=== PATIENT | male | born 1965 | race Caucasian/White ===

== ENCOUNTER 2018-08-01 23:11 | Observation (INO) | payer OTHER ==
[~2018-08-01 23:11] MED LIST: Iopamidol 370 76% 100 ML VIAL ONE
--- NOTE | 2018-08-01 23:49 | RAD ---
AP VIEW CHEST: 08/01/18 HISTORY: Chest pain. AP view chest is obtained on 08/01/18. Comparison made to previous exam from 10/23/13. AP view chest demonstrates the lungs to be well aerated. No evidence of active intrathoracic disease seen. No evidence of effusions, pneumonia or pneumothorax seen. IMPRESSION: Unremarkable AP view chest. POS: [facility]
[2018-08-02 00:06] LABS: #Eosinphils 0.2 thou/uL (0.0-0.7); #Lymphocytes 2.4 thou/uL (1.20-3.40); #Monocytes 0.4 thou/uL (0.11-0.59); #Neutrophils 3.1 thou/uL (1.40-6.50); %Basophils 0.4 % (0.0-1.0); %Eosinophils 2.8 % (0.0-10.0); %Lymphocytes 39.1 % (21.0-51.0); %Monocytes 6.9 % (0.0-10.0); %Neutrophils 50.8 % (42.0-75.0); Hemoglobin 14.2 g/dL (14.0-18.0); Mean Corpuscular HGB CONC 32.5 g/dL (32.0-36.0); Mean Corpuscular Hemoglobin 29.3 pg (27.0-31.0); Mean Corpuscular Volume 90.2 fL (78.0-98.0); Mean Platelet Volume 7.3 fL (7.4-10.4); Platelet Count 222 thou/uL (130-400); RBC Distribution Width 11.5 % (11.5-14.5); Red Blood Cell (RBC) Count 4.86 mill/uL (4.70-6.10); White Blood Cell (WBC) Count 6.2 thou/uL (4.8-10.8)
[2018-08-02 00:27] LABS: ALT (SGPT) 24 U/L (8-55); AST (SGOT) 14 U/L (5-34); Albumin 3.8 g/dL (3.5-5.0); Alkaline Phosphatase 67 U/L (40-150); Anion Gap 10 mmol/L (10-20); BUN (Urea Nitrogen) 17 mg/dL (8.4-25.7); Bilirubin, Total 0.4 mg/dL (0.2-1.2); CK (CPK) 174 U/L (30-200); Calc. Creatinine Clearance 0 mL/min (70-130); Calcium 9.1 mg/dL (7.8-10.44); Carbon Dioxide 24 mmol/L (22-29); Chloride 106 mmol/L (98-107); Estimated GFR-MDRD 83; Globulin 2.7 g/dL (2.4-3.5); Glucose 154 mg/dL (70-105); Lipase 32 U/L (8-78); Potassium 3.5 mmol/L (3.5-5.1); Protein, Total 6.5 g/dL (6.0-8.3); Sodium 136 mmol/L (136-145)
[2018-08-02 00:39] LABS: CKMB 1.8 ng/mL (0-6.6); Troponin I Less than 0.010 ng/mL (< 0.028)
[2018-08-02] MEDS ORDERED: Enoxaparin Sodium 100 MG/ML SYRINGE ONE (01:33)
[2018-08-02 01:55] LABS: Prothrombin Time 13.4 SEC (12.0-14.7)
[2018-08-02] MEDS ORDERED: Ondansetron ODT 4 MG TAB SL PRN (03:01)
[2018-08-02] MEDS ORDERED: Ondansetron PF 4 MG/2 ML Vial IVP PRN (03:01)
[2018-08-02] MEDS ORDERED: Acetaminophen 325 MG TAB PO PRN (03:01)
[2018-08-02] MEDS ORDERED: Sodium Chloride 0.9% 1,000 ML IV SCH (03:01)
[2018-08-02 03:19] VITALS: BMI 34.4
[2018-08-02 03:57] LABS: Troponin I Less than 0.010 ng/mL (< 0.028)
[2018-08-02 06:25] LABS: Troponin I Less than 0.010 ng/mL (< 0.028)
[2018-08-02 08:02] VITALS: TEMP 97.4
[2018-08-02] MEDS ORDERED: Aspirin 325 MG TAB PO SCH (09:00)
[2018-08-02] MEDS ORDERED: Zolpidem Tartrate 5 MG TAB PO PRN (09:39)
[2018-08-02] MEDS ORDERED: Dextrose 50% Abboject 50 ML SYRINGE SLOW IVP PRN (09:53)
[2018-08-02] MEDS ORDERED: Dextrose 5% in Water 1,000 ML IV PRN (09:53)
[2018-08-02] MEDS ORDERED: HumaLOG 300 UNITS/3 ML VIAL SC PRN (09:53)
--- NOTE | 2018-08-02 09:55 | CT ---
PRELIMINARY REPORT/[facility]/EMERGENTY AFTER-HOURS PROCEDURE CT Angiography Chest With Intravenous Contrast EXAM DATE/TIME: 08/02/2018 12:24 AM CLINICAL HISTORY: 53 years old, male; Pain; Chest pain; Type not specified; Patient HX: Er-6, 53 y/o m presents to ed C/O intermittent cp x 2 weeks with worsening at approx 1400 today. PT notes cp with incr dyspnea today, prompting concern. Pt's notes recent dyspnea on exertion. Associated with lue paresthesias. Denies cough, rhinorrhea, radiation of pain to jaw, n/v, ble swelling, calf pa in. PT has taken 2 tabs 325 MG asa today TECHNIQUE: Axial computed tomographic angiography images of the chest with intravenous contrast using CT angiography protocol. MIP reconstructed images were created and reviewed. COMPARISON: No relevant prior studies available. FINDINGS: No definite acute intraluminal filling defects within the pulmonary arterial system. Axial image [id number] 0, and corresponding coronal image [id number] demonstrate weblike linear nonocclusive filling defects with in proximal segmental right lower lobe pulmonary arterial branches, suggesting chronic PE. No thoracic aortic aneurysm or dissection. No evidence of pulmonary edema or right heart strain. No pleural effusion or pneumothorax. No suspicious lung mass or air space process. No central endobronchial lesion. Limited visualization of upper abdomen shows no concerning finding. Bony structures show no acute fracture or destructive process. IMPRESSION: No convincing acute pulmonary embolus. Linear weblike nonocclusive filling defects within proximal right lower lobe segmental branches, the appearance of which suggests chronic PE without hemodynamic compromise. No other acute or concerning focal intrathoracic abnormality. Findings were discussed by telephone with Amanda Burdick on 08/02/2018 1:17 AM CDT, to expedite f urther management. 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 Pat ient's symptoms are left-sided and this would correlate with the right-sided findings being chronic without acute complication Thank you for allowing us to participate in the care of your patient. Dictated and Authenticated by: Elvin Eckert MD 08/02/2018 1:18 AM Central Time ([place] & [place]) FINAL REPORT EMERGENT AFTER HOURS CT ANGIO OF CHEST PERFORMED WITH INTRAVENOUS CONTRAST ENHANCEMENT WITH 3D RECONS TRUCTIONS: HISTORY: Chest pain, shortness of breath, dyspnea on exertion, pain to jaw region. FINDINGS: The lungs are clear of any infiltrative process. There is some minimal ground-glass opacity to the l felipe bases with areas that may represent some air trapping. There are no pulmonary nodules or conflue nt infiltrate. There is no significant mediastinal or hilar lymphadenopathy. No significant axillar y adenopathy. The thoracic aorta is normal in caliber. There is good pulmonary artery opacification. There are some linear densities seen within the segmen trevon portion of the right lower lobe. This would suggest an older area of embolus. It does not have an acute appearance, and in reviewing a 10/23/2013 examination, it was present at that time and actual ly has a very similar appearance on that study. The visualized liver parenchymal shows no focal findings. IMPRESSION: 1. Linear filling defects in the segmental branch in the right lower lobe. This is virtually identi lynsey to a 2014 study and is consistent with a small focus of chronic thrombus. No signs of any acute thrombus. 2. This report is in agreement with the temporary report issued by [facility]. POS: [facility]
[2018-08-02] MEDS ORDERED: Enoxaparin Sodium 120 MG/0.8 ML SYRINGE SC SCH ×2 (10:15→21:00)
--- NOTE | 2018-08-02 10:18 | HP ---
DATE OF ADMISSION: 08/02/2018 HISTORY OF PRESENT ILLNESS: This is a 53-year-old white male with a history of factor VIII clotting disorder, history of recurrent DVT who presents with chest pain. The patient was doing well until ap proximately 3 weeks ago. He had just returned from a weekend trip to [place]. It was a 5-hour drive there and 5 hours back. One week after returning from the trip, he began not feeling well. H miko was having some left-sided chest discomfort with numbness of his left upper extremity. He was havi ng some dizziness, shortness of breath, and feeling faint. The symptoms became progressively worse, especially yesterday throughout the day. Finally, yesterday evening he was feeling quite bad and pre sented to the emergency room for further evaluation. Cardiac enzymes were found to be unremarkable; however, a CTA of the chest revealed a chronic right lower lobe pulmonary embolism. He was started o n Lovenox and this morning, he is feeling much better. PAST MEDICAL HISTORY: Hypertension; diabetes; heart disease; superficial thrombophlebitis; history o f right leg DVT, 2008; left leg DVT in 2009; right upper extremity DVT in 09/2010; factory VIII clott ing disorder. PAST SURGICAL HISTORY: Include knee surgery 1981, ventral hernia repair in 1987, L4-L5 laminectomy i n 1998, repeat ventral hernia repair 09/2010, colonoscopy in 05/2010. FAMILY HISTORY: Father with a CVA. Mother with hypertension. No other family history. SOCIAL HISTORY: He is . He has one daughter. He is a airframe and power plant mechanic. Drinks occasion al caffeine. MEDICATIONS: Multivitamin daily, HCTZ daily, Cialis p.r.n., amlodipine 2.5 daily, muscle relaxers p. r.n., Ambien 12.5 ER at bedtime p.r.n., losartan 100 mg daily, aspirin 325 daily. ALLERGIES: None. REVIEW OF SYSTEMS: As above. PHYSICAL EXAMINATION: VITAL SIGNS: Temperature 97.4, pulse 58, respirations 16, pulse ox 95, blood pressure 126/80. GENERAL: No acute distress. HEENT: Clear. HEART: Regular rate and rhythm. LUNGS: Clear. ABDOMEN: Soft, nontender. EXTREMITIES: No edema of the upper or lower extremities. NEUROLOGIC: Intact. LABORATORY: White count 6.2, H and H 14 and 43, platelets 222. INR 1.0. Electrolytes normal. Bloo d sugar 154, creatinine 0.95, BUN 17. Troponin I less than 0.010 x3. BNP less than 10. Lipase 32. CTA, right lower lobe chronic thrombus. ASSESSMENT: 1. Chest pain, rule out myocardial infarction. Cardiac enzymes thus far negative. The patient is f eeling much better this morning. 2. Left arm numbness. 3. Right lower lobe pulmonary embolus, chronic in nature. 4. History of recurrent deep venous thrombosis of the right upper extremity and bilateral lower extr emities. 5. Factor VIII deficiency. 6. Hypertension, diabetes and heart disease. PLAN: 1. Lovenox 120 q.12 hours. 2. Venous Doppler of the left upper extremity and bilateral lower extremities. We will await ultras ound results before proceeding.
[2018-08-02 12:01] VITALS: BP 127/86
--- NOTE | 2018-08-02 15:15 | ULT ---
BILATERAL LOWER EXTREMITY VENOUS DUPLEX EXAM: HISTORY: Bilateral leg pain and swelling. FINDINGS: Real-time color Doppler evaluation in the right and left lower extremities was performed from groin t o calf. This includes evaluation of common femoral, superficial and profunda femoral, saphenous, pop liteal, and posterior tibial veins. On the right side, there is normal compressibility and augmentation. On the left side, there is some incomplete compressibility of the posterior tibial vein mid calf region. IMPRESSION: Nonocclusive thrombus within the posterior tibial vein on the left at mid calf level. Above this lev el, the deep venous system is patent. POS: [facility]
--- NOTE | 2018-08-02 15:43 | ULT ---
VENOUS DOPPLER ULTRASOUND OF THE LEFT UPPER EXTREMITY: History Left arm pain and tingling. TECHNIQUE: Porter scale ultrasound with color flow and spectral Doppler imaging of the deep venous system of the l eft upper extremity is performed. FINDINGS: There is good flow, compression, and normal waveforms in the left internal jugular, subclavian, axill freddy, brachial, radial, ulnar, basilic, and cephalic veins in the left upper extremity. IMPRESSION: No evidence of deep vein thrombosis in the left upper extremity. POS: [facility]
== END 2018-08-02 15:17 | disposition home or self-care (01) ==
LOC: ERS 23:11 → 2SW 08-02 02:40
PROVIDERS: ADMIT Family Medicine; ATTEND Family Medicine
DX: R07.89 Other chest pain (principal); R20.2 Paresthesia of skin; I82.442 Acute embolism and thrombosis of left tibial vein; D68.2 Hereditary deficiency of other clotting factors; I27.82 Chronic pulmonary embolism; I10 Essential (primary) hypertension; E11.9 Type 2 diabetes mellitus without complications; Z86.718 Personal history of other venous thrombosis and embolism; Z79.82 Long term (current) use of aspirin; Z79.899 Other long term (current) drug therapy
CPT/HCPCS: 36415; 36416; 71045; 71275; 80053; 82553; 83690; 83880; 84484; 85025; 85610; 85730; 93005; 93970; 96360; 96361; 96372; G0378; J1650

== ENCOUNTER 2020-10-19 12:27 | Outpatient (CLI) | payer BC ==
[2020-10-19 13:02] LABS: Estimated GFR-MDRD - POC Greater than 90
--- NOTE | 2020-10-19 14:30 | MRI ---
MRI OF THE LUMBAR SPINE WITH AND WITHOUT CONTRAST: DATE: 10/19/2020. COMPARISON: None. HISTORY: Low back pain with right lower extremity radiculopathy. TECHNIQUE: Multiplanar, multisequence MR imaging of the lumbar spine is provided with and without contrast. FINDINGS: The sagittal STIR imaging demonstrates no focal area of vertebral body marrow edema. On the basis of 5 lumbar-type vertebral bodies, conus medullaris terminates at the T12-L1 level. T12-L1: There is disk space narrowing with disk desiccation and mild bilateral facet hypertrophy. T here is no significant central canal or neural foraminal stenosis. L1-2: Disk space narrowing with disk desiccation and mild disk bulge. Mild bilateral facet hypertro phy. Mild bilateral neural foraminal stenosis and mild central canal stenosis. L2-3: There is mild disk bulge. There is mild bilateral facet hypertrophy with mild bilateral neura l foraminal stenosis and no significant central canal stenosis. L3-4: There is disk space narrowing with disk desiccation and mild disk bulge. There is mild bilate ral facet hypertrophy. No significant central canal stenosis is noted. There is moderate/severe stephanie ateral neural foraminal stenosis, left greater than right. L4-5: There is prominent bilateral facet hypertrophy, left greater than right. There is disk space narrowing with disk desiccation and mild disk bulge. No central canal stenosis. Moderate right and severe left neural foraminal stenosis. L5-S1: There is disk space narrowing with disk desiccation. Bilateral facet hypertrophy noted, left greater than right. Moderate left neural foraminal stenosis. Mild right neural foraminal stenosis and mild central canal stenosis. The patient appears status post right hemilaminectomy at the S1 and L5 levels. Bilateral laminectomy changes are suspected in the L3-4 region. The imaged retroperitoneal structures demonstrate no acute findings. The post contrast imaging demonstrates no abnormal enhancement involving the intervertebral disks or the imaged osseous structures. No abnormal enhancement is seen involving the contents of the thecal sac. Mild circumferential epidural enhancement is noted at the L4-5 level probably on the basis of postope rative change and associated scar. There is probable postoperative enhancement in the region of the neural foramen on the left at L5-S1 and posterior to the left facet joint at the L5-S1 level. IMPRESSION: Multilevel postoperative and degenerative change within the lumbar spine as detailed above. POS: [facility]
== END 2020-10-19 12:28 | disposition home or self-care (01) ==
LOC: BICMRI 12:27
PROVIDERS: ATTEND Family Medicine
DX: M47.26 Other spondylosis with radiculopathy, lumbar region (principal); Z98.890 Other specified postprocedural states
CPT/HCPCS: 72158; 82565

== ENCOUNTER 2021-06-23 14:59 | Emergency (ER) | payer BC | END 2021-06-23 15:38 | disposition left against medical advice (07) | LOC: ERS 14:59 | DX: Z53.21 Procedure and treatment not carried out due to patient leaving prior to being seen by health care provider (principal) | CPT/HCPCS: 99283 ==

== ENCOUNTER 2023-06-06 13:15 | Inpatient (IN) | payer OTHER, SELFPAY ==
[~2023-06-06 13:15] MED LIST changes: -Iopamidol 370 76% 100 ML VIAL ONE; +Iopamidol-370 76% 500 ML MDV (1 ML CHARGE) ONE
[2023-06-06 13:53] LABS: #Eosinphils 0.1 thou/uL (0.0-0.7); #Monocytes 0.5 thou/uL (0.11-0.59); #Neutrophils 4.3 thou/uL (1.40-6.50); %Basophils 0.3 % (0.0-1.0); %Eosinophils 1.3 % (0.0-10.0); %Monocytes 7.3 % (0.0-10.0); Hematocrit 45.4 % (42.0-52.0); Hemoglobin 15.5 g/dL (14.0-18.0); Mean Corpuscular HGB CONC 34.1 g/dL (32.0-36.0); Mean Corpuscular Hemoglobin 30.2 pg (27.0-31.0); Mean Corpuscular Volume 88.5 fl (78.0-98.0); Mean Platelet Volume 9.5 fL (7.4-10.4); Platelet Count 251 10x3/uL (130-400); RBC Distribution Width 12.5 % (11.5-14.5); Red Blood Cell (RBC) Count 5.13 mill/uL (4.70-6.10); White Blood Cell (WBC) Count 7.1 10x3/uL (4.8-10.8)
[2023-06-06 14:29] LABS: ALT (SGPT) 21 U/L (8-55); AST (SGOT) 21 U/L (5-34); Albumin 4.4 g/dL (3.5-5.0); Alkaline Phosphatase 79 U/L (40-110); Anion Gap 15 mmol/L (10-20); BUN (Urea Nitrogen) 25 mg/dL (8.4-25.7); Bilirubin, Total 0.9 mg/dL (0.2-1.2); Calc. Creatinine Clearance 0 mL/min (70-130); Calcium 9.5 mg/dL (7.8-10.44); Carbon Dioxide 21 mmol/L (22-29); Chloride 107 mmol/L (98-107); Estimated GFR 89; Globulin 3.1 g/dL (2.4-3.5); Glucose 109 mg/dL (70-105); Lipase 15 U/L (8-78); Potassium 4.7 mmol/L (3.5-5.1); Protein, Total 7.5 g/dL (6.0-8.3); Sodium 138 mmol/L (136-145)
[2023-06-06 14:42] LABS: Troponin I Less than 0.010 ng/mL (< 0.028)
[2023-06-06] MEDS ORDERED: Metoprolol Tartrate 25 MG TAB ONE ×2 (15:52)
[2023-06-06] MEDS ORDERED: Nitroglycerin 0.4 MG TAB (25 Tab Bottle) SL PRN (16:06)
[2023-06-06] MEDS ORDERED: Communication Order-Pharmacy FS SCH (16:13)
[2023-06-06] MEDS ORDERED: Senokot S 8.6-50 MG TAB PO PRN (16:15)
[2023-06-06] MEDS ORDERED: Acetaminophen 325 MG TAB PO PRN (16:15)
[2023-06-06] MEDS ORDERED: Zolpidem Tartrate 5 MG TAB PO PRN ×2 (16:17→16:52)
[2023-06-06 16:20] LABS: INR-International Normal Ratio 1.1; Prothrombin Time 14.5 sec (12.0-14.7)
[2023-06-06 16:21] LABS: PTT 27.7 sec (22.9-36.1)
[2023-06-06 16:43] LABS: D-Dimer Test Less than 0.27 *mcg/mL (0.27-0.43)
[2023-06-06 16:52] LABS: SARS-CoV-2 NAA Rapid Test Not Detected (NotDetected)
[2023-06-06 17:39] LABS: Troponin I Less than 0.010 ng/mL (< 0.028)
[2023-06-06 18:10] LABS: Magnesium 2.1 mg/dL (1.6-2.6)
[2023-06-06 18:23] VITALS: BMI 34.4
[2023-06-06] MEDS: Zolpidem Tartrate 5 MG TAB PO SCH (20:44)
[2023-06-06] MEDS: Famotidine 20 MG TAB PO SCH (20:46)
[2023-06-06] MEDS: Metoprolol Tartrate 25 MG TAB PO SCH (20:47)
[2023-06-06 23:09] LABS: Troponin I Less than 0.010 ng/mL (< 0.028)
[2023-06-07] MEDS: Metoprolol Tartrate 25 MG TAB PO SCH (09:24)
[2023-06-07] MEDS: Famotidine 20 MG TAB PO SCH ×2 (09:25→20:49)
[2023-06-07] MEDS: Zolpidem Tartrate 5 MG TAB PO SCH (20:48)
[2023-06-07] MEDS: Amiodarone 200 MG TAB PO SCH (20:48)
[2023-06-08] MEDS: Famotidine 20 MG TAB PO SCH ×2 (10:30→20:45)
[2023-06-08] MEDS: Empagliflozin 10 MG TAB PO SCH (10:31)
[2023-06-08] MEDS: Amiodarone 200 MG TAB PO SCH ×2 (10:31→20:44)
[2023-06-08] MEDS: Zolpidem Tartrate 5 MG TAB PO SCH (20:44)
[2023-06-09 04:54] LABS: #Eosinphils 0.1 thou/uL (0.0-0.7); #Monocytes 0.4 thou/uL (0.11-0.59); #Neutrophils 2.1 thou/uL (1.40-6.50); %Basophils 0.2 % (0.0-1.0); %Eosinophils 2.9 % (0.0-10.0); %Lymphocytes 41.2 % (21.0-51.0); %Monocytes 8.6 % (0.0-10.0); %Neutrophils 46.9 % (42.0-75.0); Hematocrit 40.3 % (42.0-52.0); Hemoglobin 13.7 g/dL (14.0-18.0); Mean Corpuscular Hemoglobin 30.2 pg (27.0-31.0); Mean Platelet Volume 9.8 fL (7.4-10.4); Platelet Count 194 10x3/uL (130-400); RBC Distribution Width 12.2 % (11.5-14.5); Red Blood Cell (RBC) Count 4.53 mill/uL (4.70-6.10); White Blood Cell (WBC) Count 4.5 10x3/uL (4.8-10.8)
[2023-06-09 04:59] LABS: Hemoglobin A1c 5.4 % (4.0-6.0)
[2023-06-09 05:23] LABS: Anion Gap 11 mmol/L (10-20); BUN (Urea Nitrogen) 16 mg/dL (8.4-25.7); Calc. Creatinine Clearance 120 mL/min (70-130); Calcium 9.2 mg/dL (7.8-10.44); Carbon Dioxide 25 mmol/L (22-29); Cardiac Risk 4.3 (Less than 4.5); Chloride 106 mmol/L (98-107); Cholesterol 146 mg/dl (< 200 Desired); Estimated GFR 89; Glucose 93 mg/dL (70-105); HDL Cholesterol 34 mg/dL (>60 Neg Risk); LDL Cholesterol, Calculated 96 mg/dL; Potassium 3.9 mmol/L (3.5-5.1); Sodium 138 mmol/L (136-145); Triglycerides 80 mg/dL (Less than 150)
[2023-06-09] MEDS: Amiodarone 200 MG TAB PO SCH ×2 (08:40→20:36)
[2023-06-09] MEDS: Empagliflozin 10 MG TAB PO SCH (08:40)
[2023-06-09] MEDS: Aspirin 81 mg Enteric Coated Tablet PO SCH (08:40)
[2023-06-09] MEDS: Famotidine 20 MG TAB PO SCH ×2 (08:41→20:34)
[2023-06-09] MEDS ORDERED: Communication Order-Pharmacy FS SCH (17:30)
[2023-06-09] MEDS: Zolpidem Tartrate 5 MG TAB PO SCH (20:36)
[2023-06-09] MEDS: Atorvastatin Calcium 20 MG TAB PO SCH (20:36)
[2023-06-10] MEDS ORDERED: Sodium Chloride 0.9% 250 ML IV SCH (00:01)
[2023-06-10] MEDS: Amiodarone 200 MG TAB PO SCH ×2 (05:37→20:17)
[2023-06-10] MEDS: Aspirin 81 mg Enteric Coated Tablet PO SCH (05:37)
[2023-06-10] MEDS: Famotidine 20 MG TAB PO SCH ×2 (05:40→20:17)
[2023-06-10] MEDS ORDERED: Lidocaine 1% (PF) 30 ML VIAL ONE (08:41)
[2023-06-10] MEDS ORDERED: Verapamil 5 MG/2 ML VIAL ONE (08:41)
[2023-06-10] MEDS ORDERED: Heparin 10,000 UNITS/ 10 ML VIAL ONE (08:41)
[2023-06-10] MEDS ORDERED: Nitroglycerin 50 MG/250 ML BOT 250 ML ONE (08:41)
[2023-06-10] MEDS ORDERED: fentaNYL 50 mcg/mL 1 mL Vial ONE (09:27)
[2023-06-10] MEDS ORDERED: Midazolam HCl 2 mg/2 ml Vial ONE (09:27)
[2023-06-10] MEDS ORDERED: Iopamidol 370 76% 100 ML VIAL ONE (10:18)
[2023-06-10] MEDS ORDERED: PROPOFOL 20 ML ONE (14:42)
[2023-06-10] MEDS ORDERED: Ketamine 50 MG/ML (10ML VIAL) ONE (15:02)
[2023-06-10] MEDS ORDERED: PROPOFOL 200 MG/20 ML VIAL ONE (15:21)
[2023-06-10] MEDS: Sacubitril 24MG/Valsartan 26 MG TAB PO SCH (20:17)
[2023-06-10] MEDS: Atorvastatin Calcium 20 MG TAB PO SCH (20:17)
[2023-06-10] MEDS: Zolpidem Tartrate 5 MG TAB PO SCH (20:18)
[2023-06-11] MEDS: Aspirin 81 mg Enteric Coated Tablet PO SCH (08:59)
[2023-06-11] MEDS ORDERED: Empagliflozin 10 MG TAB PO SCH (09:00)
[2023-06-11] MEDS ORDERED: Apixaban 5 MG TAB PO SCH (09:00)
[2023-06-11] MEDS: Sacubitril 24MG/Valsartan 26 MG TAB PO SCH (09:00)
[2023-06-11] MEDS: Amiodarone 200 MG TAB PO SCH (09:01)
[2023-06-11] MEDS: Famotidine 20 MG TAB PO SCH (09:02)
[2023-06-11 15:48] VITALS: BP 107/64; TEMP 97.4
[2023-06-17] MEDS ORDERED: Amiodarone 200 MG TAB PO SCH (09:00)
== END 2023-06-11 17:30 | disposition home or self-care (01) | DRG 286 ==
LOC: ERS 13:15 → 2SW 18:16 → OBSVTOIN 06-07 16:30
PROVIDERS: ADMIT Internal Medicine; ATTEND Family Medicine
PROC: 4A023N7 Measurement of Cardiac Sampling and Pressure, Left Heart, Percutaneous Approach (ICD-10-PCS; principal; 2023-06-10)
PROC: B2111ZZ Fluoroscopy of Multiple Coronary Arteries using Low Osmolar Contrast (ICD-10-PCS; 2023-06-10)
PROC: B2151ZZ Fluoroscopy of Left Heart using Low Osmolar Contrast (ICD-10-PCS; 2023-06-10)
PROC: 5A2204Z Restoration of Cardiac Rhythm, Single (ICD-10-PCS; 2023-06-10)
PROC: B24BZZ4 Ultrasonography of Heart with Aorta, Transesophageal (ICD-10-PCS; 2023-06-10)
DX: I48.91 Unspecified atrial fibrillation (principal); D66 Hereditary factor VIII deficiency; I50.23 Acute on chronic systolic (congestive) heart failure; D68.59 Other primary thrombophilia; I13.0 Hypertensive heart and chronic kidney disease with heart failure and stage 1 through stage 4 chronic kidney disease, or unspecified chronic kidney disease; I42.0 Dilated cardiomyopathy; N18.2 Chronic kidney disease, stage 2 (mild); F51.04 Psychophysiologic insomnia; E78.5 Hyperlipidemia, unspecified; Z96.651 Presence of right artificial knee joint; Z98.890 Other specified postprocedural states; Z82.49 Family history of ischemic heart disease and other diseases of the circulatory system; Z79.82 Long term (current) use of aspirin; Z79.899 Other long term (current) drug therapy; Z20.822 Contact with and (suspected) exposure to COVID-19; I42.8 Other cardiomyopathies; Z82.3 Family history of stroke; G47.00 Insomnia, unspecified
CPT/HCPCS: 36415; 71045; 71275; 80048; 80053; 80061; 83036; 83690; 83735; 83880; 84443; 84484; 85025; 85379; 85610; 85730; 92960; 93005; 93010; 93306; 93312; 93458; 94760; 96372; 99152; C1769; G0378; J1644; J1650; J2001; J2250; J2704; J3010; J7030; Q9967

== ENCOUNTER 2023-06-18 19:17 | Emergency (ER) | payer OTHER ==
[2023-06-18 20:25] LABS: #Eosinphils 0.1 thou/uL (0.0-0.7); #Monocytes 0.5 thou/uL (0.11-0.59); #Neutrophils 3.7 thou/uL (1.40-6.50); %Basophils 0.5 % (0.0-1.0); %Eosinophils 2.1 % (0.0-10.0); %Lymphocytes 31.1 % (21.0-51.0); %Monocytes 7.5 % (0.0-10.0); %Neutrophils 58.6 % (42.0-75.0); Hematocrit 42.2 % (42.0-52.0); Hemoglobin 14.8 g/dL (14.0-18.0); Mean Corpuscular HGB CONC 35.1 g/dL (32.0-36.0); Mean Corpuscular Hemoglobin 30.6 pg (27.0-31.0); Mean Corpuscular Volume 87.2 fl (78.0-98.0); Mean Platelet Volume 9.7 fL (7.4-10.4); Platelet Count 218 10x3/uL (130-400); RBC Distribution Width 12.2 % (11.5-14.5); Red Blood Cell (RBC) Count 4.84 mill/uL (4.70-6.10); White Blood Cell (WBC) Count 6.3 10x3/uL (4.8-10.8)
[2023-06-18 20:34] LABS: Troponin I 0.015 ng/mL (< 0.028)
[2023-06-18 20:36] LABS: ALT (SGPT) 53 U/L (8-55); AST (SGOT) 23 U/L (5-34); Albumin 4.1 g/dL (3.5-5.0); Alkaline Phosphatase 81 U/L (40-110); Anion Gap 13 mmol/L (10-20); BUN (Urea Nitrogen) 17 mg/dL (8.4-25.7); Bilirubin, Total 0.4 mg/dL (0.2-1.2); Calc. Creatinine Clearance 0 mL/min (70-130); Calcium 9.5 mg/dL (7.8-10.44); Carbon Dioxide 23 mmol/L (22-29); Chloride 104 mmol/L (98-107); Estimated GFR 83; Glucose 139 mg/dL (70-105); Potassium 3.9 mmol/L (3.5-5.1); Protein, Total 7.1 g/dL (6.0-8.3); Sodium 136 mmol/L (136-145)
[2023-06-18 23:54] LABS: Troponin I Less than 0.010 ng/mL (< 0.028)
== END 2023-06-19 00:05 | disposition home or self-care (01) ==
LOC: ERS 19:17
DX: R42 Dizziness and giddiness (principal); I10 Essential (primary) hypertension; E78.5 Hyperlipidemia, unspecified; Z79.82 Long term (current) use of aspirin; Z79.899 Other long term (current) drug therapy
CPT/HCPCS: 71045; 71275; 80053; 84484; 85025; 93005

== ENCOUNTER 2023-07-25 12:08 | Emergency (ER) | payer OTHER ==
[2023-07-25 12:51] LABS: #Eosinphils 0.1 thou/uL (0.0-0.7); #Monocytes 0.5 thou/uL (0.11-0.59); #Neutrophils 3.8 thou/uL (1.40-6.50); %Basophils 0.2 % (0.0-1.0); %Eosinophils 1.3 % (0.0-10.0); %Lymphocytes 26.3 % (21.0-51.0); %Monocytes 7.6 % (0.0-10.0); %Neutrophils 64.6 % (42.0-75.0); Hematocrit 45.5 % (42.0-52.0); Hemoglobin 15.9 g/dL (14.0-18.0); Mean Corpuscular HGB CONC 34.9 g/dL (32.0-36.0); Mean Corpuscular Hemoglobin 30.9 pg (27.0-31.0); Mean Corpuscular Volume 88.5 fl (78.0-98.0); Mean Platelet Volume 9.3 fL (7.4-10.4); Platelet Count 206 10x3/uL (130-400); RBC Distribution Width 12.3 % (11.5-14.5); Red Blood Cell (RBC) Count 5.14 mill/uL (4.70-6.10); White Blood Cell (WBC) Count 5.9 10x3/uL (4.8-10.8)
[2023-07-25 13:11] LABS: ALT (SGPT) 31 U/L (8-55); AST (SGOT) 20 U/L (5-34); Albumin 4.6 g/dL (3.5-5.0); Alkaline Phosphatase 73 U/L (40-110); Anion Gap 14 mmol/L (10-20); BUN (Urea Nitrogen) 19 mg/dL (8.4-25.7); Bilirubin, Total 0.7 mg/dL (0.2-1.2); Calc. Creatinine Clearance 0 mL/min (70-130); Calcium 9.6 mg/dL (7.8-10.44); Carbon Dioxide 21 mmol/L (22-29); Chloride 108 mmol/L (98-107); Estimated GFR 100; Globulin 2.5 g/dL (2.4-3.5); Glucose 105 mg/dL (70-105); Potassium 3.9 mmol/L (3.5-5.1); Protein, Total 7.1 g/dL (6.0-8.3); Sodium 139 mmol/L (136-145)
[2023-07-25 13:15] LABS: Troponin I Less than 0.010 ng/mL (< 0.028)
== END 2023-07-25 15:54 | disposition home or self-care (01) ==
LOC: ERS 12:08
DX: R07.9 Chest pain, unspecified (principal); I10 Essential (primary) hypertension; E78.5 Hyperlipidemia, unspecified; Z79.82 Long term (current) use of aspirin; Z79.01 Long term (current) use of anticoagulants; Z79.899 Other long term (current) drug therapy
CPT/HCPCS: 71045; 71275; 80053; 84484; 85025; 93005; Q9967

== ENCOUNTER 2023-09-12 13:41 | Outpatient (CLI) | payer OTHER | END 2023-09-12 13:42 | disposition home or self-care (01) | LOC: BICULT 13:41 | PROVIDERS: ATTEND Internal Medicine Cardiovascular Disease | DX: I82.409 Acute embolism and thrombosis of unspecified deep veins of unspecified lower extremity (principal) | CPT/HCPCS: 93970 ==

== ENCOUNTER 2024-04-17 09:54 | Outpatient (CLI) | payer OTHER | END 2024-04-17 09:55 | disposition home or self-care (01) | LOC: RAD 09:54 | PROVIDERS: ATTEND Internal Medicine Cardiovascular Disease | DX: I48.0 Paroxysmal atrial fibrillation (principal); J98.11 Atelectasis | CPT/HCPCS: 71046 ==

== ENCOUNTER 2025-07-19 11:52 | Emergency (ER) | payer OTHER ==
[2025-07-19 12:39] LABS: #Basophils Less than 0.03 10x3/uL (0.0-0.2); #Eosinophils 0.06 10x3/uL (0.0-0.7); #Monocytes 0.40 10x3/uL (0.11-0.59); #Neutrophils 2.68 10x3/uL (1.40-6.50); %Basophils 0.2 % (0.0-1.0); %Eosinophils 1.3 % (0.0-10.0); %Lymphocytes 31.3 % (21.0-51.0); %Monocytes 8.7 % (0.0-10.0); %Neutrophils 58.3 % (42.0-75.0); Hematocrit 46.5 % (42.0-52.0); Hemoglobin 15.7 g/dL (14.0-18.0); Mean Corpuscular Hemoglobin 29.7 pg (27.0-31.0); Mean Corpuscular Volume 87.9 fL (78.0-98.0); Platelet Count 188 10x3/uL (130-400); Red Blood Cell (RBC) Count 5.29 mill/uL (4.70-6.10); White Blood Cell (WBC) Count 4.60 10x3/uL (4.8-10.8)
[2025-07-19 13:14] LABS: ALT (SGPT) 26 U/L (Less than 45); AST (SGOT) 19 U/L (11-34); Albumin 4.0 g/dL (3.1-4.5); Alkaline Phosphatase 65 U/L (40-110); Anion Gap 9 mmol/L (10-20); BUN (Urea Nitrogen) 17 mg/dL (8.4-25.7); Bilirubin, Total 0.4 mg/dL (0.3-1.2); Calc. Creatinine Clearance 0 mL/min (70-130); Calcium 9.0 mg/dL (7.8-10.44); Carbon Dioxide 27 mmol/L (22-29); Chloride 107 mmol/L (98-107); Globulin 3.1 g/dL (2.4-3.5); Glucose 118 mg/dL (70-105); Potassium 4.1 mmol/L (3.5-5.1); Sodium 139 mmol/L (136-145)
== END 2025-07-19 13:55 | disposition home or self-care (01) ==
LOC: ERS 11:52
DX: R07.9 Chest pain, unspecified (principal); I10 Essential (primary) hypertension
CPT/HCPCS: 71045; 80053; 84484; 85025; 93005